=== PATIENT | female | born 1980 | race Caucasian/White ===

== ENCOUNTER → 2024-12-23 | Outpatient (CLI) | payer BC, SELFPAY ==
--- NOTE | 2024-12-23 08:15 | BI_ITS ---
EXAM: SCRN MAMM (CAD)W/BOB BILAT DATE: 12/23/2024 CLINICAL HISTORY: F, Age 44 y/o , BREAST CANCER SCREENING No family history. TECHNIQUE: SCRN MAMM (CAD)W/BOB BILAT COMPARISON: Prior exam(s) dated prior outside examination dated November 08, 2023.. FINDINGS: TISSUE DENSITY: The breasts are heterogeneously dense, which may obscure small masses. Bilateral Breast Mammographic Findings: No significant masses, calcifications or other abnormalities are identified. Stable benign-appearing bilateral axillary lymph nodes. No suspicious masses, areas of developing architectural distortion, or suspicious calcifications. There has been no significant interval change. BI/SCRN MAMM (CAD)W/BOB BILAT IMPRESSION: Stable examination. OVERALL FINAL ASSESSMENT BI-RADS 2: BENIGN RECOMMENDATION: Routine annual follow-up in 1 Year A letter with findings and recommendations will be mailed to the patient. Reading Location: [id number]
--- OUTSIDE RECORDS SUMMARY | 2024-12-23 08:30 | XMS RPT_ITS | CCD ---
Author Organization [facility] Care Team Providers Care Drafting Technician Name Role Phone Bri Lepe Attending Provider [phone] Prema Mcdonald Attending Unavailable Bri Del Toro Attending Unavailable Bri Del Toro Attending Unavailable Medications Current Medications Medication Drug Class(es) Dates Sig (Normalized) Sig (Original) B-Complex With Vitamin C tablet (1 source) Start: 11-27-2024 B-Complex With Vitamin C tablet Active 1 {tbl} PO daily November 27, 2024 12:00am Cholecalciferol (1 source) Vitamin D Start: 01-02-2024 cholecalciferol (vitamin D3) (Dialyvite Vitamin D) Active PO January 02, 2024 12:00am Magnesium Aspartate (1 source) Start: 01-02-2024 magnesium aspartate HCl Active PO January 02, 2024 12:00am Turmeric extract (1 source) Start: 11-27-2024 Turmeric 400 mg capsule Active mg PO November 27, 2024 12:00am Completed/Discontinued Medications Medication Drug Class(es) Dates Sig (Normalized) Sig (Original) Drospirenone-Ethin yl Estradiol (5 sources) Progestin, Estrogen Start: 10-09-2024 End: 11-27-2024 take 3 tablets by mouth once daily Drospirenone-Ethiny l Estradiol (Vestura (28)) 3-0.02 mg tablet Discontinued 1 {tbl} PO DAILY October 09, 2024 1:44pm November 27, 2024 8:08am Start: 07-14-2024 End: 10-09-2024 take 3 tablets by mouth once daily Drospirenone-Ethinyl Estradiol (Vestura (28)) 3-0.02 mg tablet Discontinued 1 {tbl} PO DAILY July 14, 2024 10:58am October 09, 2024 1:45pm Start: 06-19-2024 End: 07-14-2024 take 3 tablets by mouth once daily Drospirenone-Ethinyl Estradiol (Vestura (28)) 3-0.02 mg tablet Discontinued 1 {tbl} PO DAILY June 19, 2024 9:01am July 14, 2024 10:59am Start: 03-27-2024 End: 06-19-2024 take 3 tablets by mouth once daily Drospirenone-Ethinyl Estradiol (Katheryn (28)) 3-0.02 mg tablet Discontinued 1 {tbl} PO DAILY March 27, 2024 12:57pm June 19, 2024 9:01am Start: 01-02-2024 End: 03-27-2024 take 3 tablets by mouth once daily Drospirenone-Ethinyl Estradiol (Katheryn (28)) 3-0.02 mg tablet Discontinued 1 {tbl} PO DAILY January 02, 2024 12:00am March 27, 2024 12:57pm Problems Problem Classification Problem Date Documented Da te Episodic/Chronic Menopausal disorders (1 source) Menopause finding; Translations: [Menopausal and female climacteric states] 01-02-2024 Chronic Osteoarthritis (1 source) Arthritis; Translations: [Unspecified osteoarthritis, unspecified site] 01-02-2024 Chronic Other screening for suspected conditions (not mental disorders or infectious disease) (1 source) Encounter for screening mammogram for malignant neoplasm of breast; Translations: [Encounter for screening mammogram for malignant neoplasm of breast] Onset: 11-27-2024 Episodic Results Test Name Value Interpretation Reference Range Facil ity Sales Director Office Visit Reporton 11-27-2024 Sales Director Office Visit Report [facility] [address] [place] [address], [address] [place] [address] OFFICE VISIT Date of Service: 11/27/24 MR#: [id number] Acct: [id number] Name: NISHA IRELAND Rep #: [id number] : 1980 Provider: SNEHA Orozco Age/Sex: 44/F Location: [facility] Status: Signed Intake Vital Signs 04/10/24 11:31 11/27/24 08:06 Height 5 ft 4 in 5 ft 4 in Weight: 168 lb 2 oz BMI 28.8 BP 124/79 H 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 Is patient in pain?: No Allergies No Known Allergies Allergy (Verified 11/27/24 08:06) Medications ???Medication ???Instructions ???Recorded ???Confirmed ???Type cholecalciferol (vitamin D3) PO 01/02/24 11/27/24 History [Dialyvite Vitamin D] magnesium aspartate HCl PO 01/02/24 11/27/24 History B-complex with vitamin C 1 tab PO QDAY 11/27/24 11/27/24 Hi story turmeric 400 mg capsule mg PO 11/27/24 11/27/24 History Is last menstrual period known: Yes Last Menstrual Period: 11/20/24 Post menopausal: No Patient : No : No Control Method: Vasectomy PFSH Medical History Arthritis Surgical History H/O arthroscopic knee surgery S/P shoulder surgery Family History Grandmother Diabetes Social History adopted: No household members: spouse housing: house number of children: 0 current occupational status: employed current occupation: [employer] pets and animals: Yes pets and animals: dog(s) sexually active: Yes Smoking Status: Never smoker alcohol intake: current well-balanced diet: daily or most days caffeine: Yes Type: coffee Number of servings: 2 eating out: 1-3 times/week during the past year weight has: increased > 10 lbs what type of physical activity do you participate in: bicycling, yoga and weight training frequency: 5-6 times per week harvinder/druze: Scientologist seatbelt use: always do you feel safe at home: Yes additional social history: - Christopher - works for [employer] History 0 Elective abortions Hx Para Spontaneous abortions Hx # Term Pregnancies Ectopic pregnancies Hx # Pregnancies Multiple births # of living children HPI Encounter for routine gynecological examination Details: NISHA IRELAND is a 44 year old who presents for annual exam. She reports no issues or concerns today. Last PAP: 10/2023 - [facility]; records request. History of abnormal PAP: No. Last mammogram: 2023 - [facility] History of abnormal mammogram: No Colon cancer screening: Cologard- 2024 (Normal) Other preventative health care screenings: PCP: Dr. Morrow[facility] Female Reproductive History Last Menstrual Period: 11/20/24 Cycle Length: 21-35 Bleeding Duration: 5 Questions: metorrhagia: No, sexually active: Yes (vasectomy), dyspareunia: No and PCB: No ROS Const Constitutional: Denies chills, fatigue, fever(s), headache(s) or weight loss Eyes Eyes: Denies change in vision ENT ENT: Denies dizziness Resp Resp: Denies cough GI GI: Denies abdominal pain, constipation or nausea : Denies difficulty voiding, dysuria, hematuria, nipple discharge, pelvic pain, prolapse symptoms, urinary incontinence, vaginal discharge, vaginal dryness, vaginal odor or vaginal pruritus Skin Skin/Breast: Denies alopecia, rash, breast mass, breast pain, breast skin changes or nipple discharge Neuro Neuro: Denies dizziness Psych Psych: Denies anxiety or depression Endo Endo: Denies cold intolerance, excessive sweating or heat intolerance Exam Const General: cooperative, healthy appearing, comfortable, no acute distress, well groomed and well hydrated Nutritional Appearance: well nourished Orientation: alert, awake and oriented x3 HENMT Head: normal to inspection and normocephalic Ears: hearing grossly normal bilaterally and external ears normal Nose: external nose normal Face and sinus: normal facial exam Eyes General: appearance normal, both eyes and all related structures Neck Neck: normal visual inspection, full ROM and no lymphadenopathy Thyroid: thyroid normal Chest Chest palpation inspection: normal inspection of the chest Breast inspection: normal inspection of the breasts and normal inspection of the axillae Breast palpation: normal palpation of the breasts, normal palpation of the axillae and no axillary lymphadenopathy Resp Effort Inspection: normal respiratory effort, able to speak in complete sentences and symmetric chest movement GI Inspection: normal to inspection Palpation: soft and no hepatosplenomegaly G (more content not included)... Normal [facility] Sales Director Office Visit Reporton 04-10-2024 Sales Director Office Visit Report [facility] [address], [address] [place] [address] OFFICE VISIT Date of Service: 04/10/24 MR#: [id number] Acct: [id number] Name: NISHA IRELAND Rep #: [id number] : 1980 Provider: SNEHA Orozco Age/Sex: 43/F [place] [facility] Status: Signed Intake Vital Signs 01/02/24 08:00 04/10/24 11:30 04/10/24 11:31 Height 5 ft 4 in 5 ft 4 in 5 ft 4 in Weight: 181 lb BMI 31.0 BP 133/79 H Intake Visit Reasons: BC F/U PRE CL CONCERNS Chief Complaint: bc fu 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 Is patient in pain?: No Allergies No Known Allergies Allergy (Verified 04/10/24 11:30) Medications ???Medication ???Instructions ???Recorded ???Confirmed ???Type cholecalciferol (vitamin D3) PO 01/02/24 04/10/24 History [Dialyvite Vitamin D] magnesium aspartate HCl PO 01/02/24 04/10/24 History drospirenone 3 mg-ethinyl 1 tab PO DAILY #84 tabs 03/27/24 04/10/24 Rx estradiol 0.02 mg tablet (Katheryn (28)) Is last menstrual period known: Yes Last Menstrual Period: 03/27/24 Post menopausal: No Patient : No : No Control Method: ocp [facility] Medical History Arthritis Surgical History H/O arthroscopic knee surgery S/P shoulder surgery Family History Grandmother Diabetes Social History adopted: No household members: spouse housing: house number of children: 0 current occupational status: employed current occupation: [employer] pets and animals: Yes pets and animals: dog(s) sexually active: Yes Smoking Status: Never smoker alcohol intake: current well-balanced diet: daily or most days caffeine: Yes Type: coffee Number of servings: 2 eating out: 1-3 times/week during the past year weight has: increased > 10 lbs what type of physical activity do you participate in: bicycling, yoga and weight training frequency: 5-6 times per week harvinder/druze: Scientologist seatbelt use: always do you feel safe at home: Yes additional social history: - Christopher - works for [employer] HPI BC F/U PRE CL CONCERNS Details: NISHA IRELAND is a 43 year old who presents for med check after starting OCP for PMDD symptoms. She reports overall an improvement since starting medication. Does still have moments of rage prior to her menses starting. She report she has also had trouble losing weight. She feels fatigue at times. Currently doing alot of work to her house. She does work out with [employer] routinely and has for years. She was having trouble sleeping and started THC gummies to help. Female Reproductive History Last Menstrual Period: 03/27/24 Questions: sexually active: Yes Menopausal Symptoms: Yes hot flashes, Yes night sweats, Yes difficulty concentrating and Yes change in libido ROS Const Constitutional: Reports night sweats Cardio Card: Reports system reviewed and no additional complaints, except as documented Resp Resp: Reports system reviewed and no additional complaints, except as documented GI GI: Reports system reviewed and no additional complaints, except as documented : Reports hot flashes Skin Skin/Breast: Reports system reviewed and no additional complaints, except as documented Neuro Neuro: Reports system reviewed and no additional complaints, except as documented Psych Psych: Reports change in libido, difficulty concentrating and irritability Exam Const General: cooperative, healthy appearing, comfortable and no acute distress Orientation: alert, awake and oriented x3 Resp Effort Inspection: normal respiratory effort, able to speak in complete sentences and symmetric chest movement Skin General: no rashes or lesions noted Neuro General: patient alert, patient awake and patient oriented x3 Cognition: normal cognition Speech: speech normal Gait: normal gait Extrem General: normal to inspection and full ROM Psych Appearance: grossly normal and well kempt Mental Status: mental status grossly normal Affect: normal affect Speech and Movement: speech and movement normal Attitude: cooperative Thought Process: normal Thought Content: normal Judgment: judgment good Coding Level of Care Code Established Pt Off vis,est,level 3 Patient Type Established Diagnoses Perimenopausal symptoms N95.1 Assessment and Plan Assessment and Plan (1) Perimenopausal symptoms: Status: Acute Plan: overall improved with OCP. Continue. Refills at home. Discussed weight management and expectations for her stage of life. Offered OTC management options. Discussed incorporating SSRI (citalopram) or buspirone for anxiety. Hydroxyzine for night time mind (more content not included)... Normal [facility] Sales Director Office Visit Reporton 01-02-2024 Sales Director Office Visit Report [facility] 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) Allergies No Known Allergies Allergy (Unverified 01/02/24 07:47) Medications ???Medication ???Instructions ???Recorded ???Confirmed ???Type cholecalciferol (vitamin D3) PO 01/02/24 01/02/24 History [Dialyvite Vitamin D] drospirenone 3 mg-ethinyl 1 tab PO DAILY #84 tabs 01/02/24 01/02/24 Rx estradiol 0.02 mg tablet (Katheryn (28)) magnesium aspartate HCl PO 01/02/24 01/02/24 History PFSH Medical History (Updated 01/02/24 @ 08:41 by Prema Mcdonald CNM) Arthritis Surgical History (Updated 01/02/24 @ 07:55 by Veronica Lino) H/O arthroscopic knee surgery S/P shoulder surgery Family History (Updated 01/02/24 @ 07:55 by Veronica Lino) Grandmother Diabetes Social History adopted: No household members: spouse housing: house number of children: 0 current occupational status: employed current occupation: [employer] pets and animals: Yes pets and animals: dog(s) sexually active: Yes Smoking Status: Never smoker alcohol intake: current well-balanced diet: daily or most days caffeine: Yes Type: coffee Number of servings: 2 eating out: 1-3 times/week during the past year weight has: increased > 10 lbs what type of physical activity do you participate in: bicycling, yoga and weight training frequency: 5-6 times per week harvinder/druze: Scientologist seatbelt use: always do you feel safe at home: Yes additional social history: - Christopher - works for [employer] HPI Encounter for routine gynecological examination Details: NISHA IRELAND is a 43 year old who presents for perimenopause consult/second opinion. Has been experiencing hot flashes, mood changes, weight gain, low libido, and trouble sleeping. 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 had vasectomy. Weight gain and mood are most troublesome for her at this time. She does weight lifting/biking and yoga 5-6 times a week for exercise and counts macros. Female Reproductive History Last Menstrual Period: 12/29/23 Bleeding Duration: 5 Questions: metorrhagia: No, sexually active: Yes, dyspareunia: No and PCB: No Menopausal Symptoms: Yes hot flashes, Yes night sweats, Yes weight change, Yes mood changes, Yes difficulty concentrating, Yes sleep problems and Yes change in libido ROS Const Constitutional: Reports night sweats Cardio Card: Reports system reviewed and no additional complaints, except as documented Resp Resp: Reports system reviewed and no additional complaints, except as documented GI GI: Reports system reviewed and no additional complaints, except as documented : Reports hot flashes Skin Skin/Breast: Reports system reviewed and no additional complaints, except as documented Neuro Neuro: Reports system reviewed and no additional complaints, except as documented Psych Psych: Reports change in libido and difficulty concentrating Exam Const General: cooperative, healthy appearing, comfortable and no acute distress Orientation: alert, awake and oriented x3 Resp Effort Inspection: normal respiratory effort, able to speak in complete sentences and symmetric chest movement GI Inspection: normal to inspection Palpation: soft Skin General: no rashes or lesions noted Neuro General: patient alert, patient awake and patient oriented x3 Cognition: normal cognition Speech: speech normal Gait: normal gait Extrem General: normal to inspection and full ROM Psych Appearance: grossly normal and well kempt Mental Status: mental status grossly normal Affect: normal affect Speech and Movement: speech and movement normal Attitude: cooperative Thought Process: normal Thought Content: normal Judgment: judgment good Coding Level of Care Code Off vis,est,level 3 Diagnoses Perimenopausal symptoms N95.1 Assessment and Plan Assessment and Plan (1) Perimenopausal symptoms: Status: Acute Plan: TSH, FSH, estradiol, Free T-faxed to lab in [facility] physicians. start combined oral contraceptive after getting labs done. RTO in 3 months for follow up appt Orders: Orders Follicle Stimulating Hormone Today N95.1 - Menopausal and female climacteric states Estradiol Today N95.1 - Menopausal and female climacteric states Thyroid Stim Hormone (TSH) Today N95.1 - Menopausal and female climacteric states (more content not included)... Normal [facility] Vital Signs Date Time Vital Sign Value Performing Clinician Bam hernandez 11-27-2024 08:06-0400 Body height 162.56 cm Bri FRAGAC Work Phone: [facility] 11-27-2024 08:06-0400 Body mass index (BMI) [Ratio] 28.8 kg/m2 Bri FRAGAC Work Phone: [facility] 11-27-2024 08:06-0400 Body weight 76.26 kg Bri Del Toro NP-C Work Phone: [facility] 11-27-2024 08:06-0400 Diastolic blood pressure 79 mm[Hg] Bri Del Toro NP-C Work Phone: [facility] 11-27-2024 08:06-0400 Systolic blood pressure 124 mm[Hg] Bri Del Toro NP-C Work Phone: [facility] Encounters Encounter Date Encounter Type Care Provider Facility Start: 11-27-2024 End: 11-27-2024 Patient encounter procedure Bri [facility] Work Phone: Start: 11-27-2024 End: 11-27-2024 Patient encounter status Bri HOOVER [facility] Start: 11-27-2024 End: 11-27-2024 ambulatory Bri Del Toro [facility] Work Phone: Start: 04-10-2024 End: 04-10-2024 ambulatory Bri Del Toro Facility:[facility] Start: 01-02-2024 End: 01-02-2024 ambulatory Prema Mcdonald Facility:[facility] Plan of Treatment Date Care Activity Detail Author MG Breast - bilateral Screening [facility] Payers Date Payer Category Payer Self-pay 2023 Unknown [id number] Unknown [id number] Unknown [id number] Unknown [id number] Social History Date Type Detail Facility Start: 01-02-2024 Tobacco smoking stat [facility] Never smoked tobacco (finding) [facility] Start: 1980 Sex Assigned At Female W [facility] Evaluation note Note Date & Type Note Facility Evaluation note Diagnosis Onset Date Resolution Encounter for routine gynecological examination noneactive November 27, 2024 8:02am [facility] Work Phone: Reason for referral (narrative) Note Date & Type Note Facility Reason for referral (narrative) No reason for referral information available 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 27, 2024 8:02 am Reason for Visit Admit Date Encounter for routine gynecological exam ination November 27, 2024 8:02am Summary Purpose Family History No Family History Records Found Advance Directives No Advanced Directives Records Found Additional Source Comments Care Teams (unrecognized sec tion and content) Team Status: Inactive Member Role Status Dates SNEHA Zapata Attending Provider Active Start: November 27, 2024 End: November 27, 2024 Goals (unrecognized section and content) Goals may be documented in a n alternate section INFORMATION SOURCE (unrecogn ized section and content) DATE CREATED AUTHOR 11/28/[address] [facility] FOR RECORDS PERTAINING TO PATIENTS WHO ARE OR HAVE BEEN ENROLLED IN A CHEMICAL DEPENDENCY/SUBSTANCEABUSE PROGRAM, SOME INFORMATION MAY BE OMITTED. This clinical summary was aggregated from multiple sources. Caution should be exercised in using it in the provision of clinical care. This summary normalizes information from multiple sources, and as a consequence, information in this document may materially change the coding, format and clinical context of patient data. In addition, data may be omitted in some cases. CLINICAL DECISIONS SHOULD BE BASED ON THE PRIMARY CLINICAL RECORDS. [facility]. provides no warranty or guarantee of the accuracy or completeness of information in this document.
== END | disposition home or self-care (01) ==
LOC: OPBI 08:02
PROVIDERS: PCP Internal Medicine; Referring Provider Nurse Practitioner Family; Visit Provider Nurse Practitioner Family
DX: Z12.31 Encounter for screening mammogram for malignant neoplasm of breast (principal)
CPT/HCPCS: 77063; 77067